=== PATIENT | female | born 1970 | race Caucasian/White ===

== ENCOUNTER 2018-09-19 03:50 | Emergency (ER) | payer SELFPAY ==
[2018-09-19] MEDS ORDERED: Bupivacaine 0.5% 10 ML SDV INJECT ONE ×2 (04:10→04:49)
[2018-09-19] MEDS ORDERED: Diphtheria,Pertussis(Acell),Tetanus Vaccine 0.5 ML SDV IM ONE (04:16)
[2018-09-19] MEDS ORDERED: ceFAZolin 1 GM in Sodium Chloride 0.9% 50 ML IV ONE (04:38)
[2018-09-19] MEDS ORDERED: Bacitracin Oint 1 GM U/D Packet TOP ONE (05:20)
--- NOTE | 2018-09-19 05:40 | EDM.PDOC ---
ED HPI GENERAL MEDICAL PROBLEM - General Chief Complaint: Bite:Animal, Insect Stated Complaint: BIT BY DOG Time Seen by Provider: 09/19/18 04:20 Source of Information: Reports: Patient History Limitations: Reports: No Limitations - History of Present Illness INITIAL COMMENTS - FREE TEXT/NARRATIVE: 47-year-old female sustained a dog bite to her left hand from a pit bull. She has several lacerations to the radial side of the hand, mainly involving the thumb and thenar area of the palm. No other injury Onset: Sudden Duration: Hour(s): (Within the last hour) Location: Reports: Upper Extremity, Left Associated Symptoms: Reports: Malaise, Weakness, Other (Patient is vagal, hypotensive and dizzy very anxious) Left Finger-Thumb Pain Score (Numeric/FACES): 10 - Related Data Allergies Allergy/AdvReac Type Severity Reaction Status Date / Time No Known Allergies Allergy Verified 09/19/18 04:11 Home Meds: Home Meds NK [No Known Home Meds] 09/16/17 [History] Past Medical History - Past Health History Medical/Surgical History: Denies Medical/Surgical History Musculoskeletal History: Reports: Fracture - Past Surgical History HEENT Surgical History: Reports: Myringotomy w Tube(s) Female Surgical History: Reports: Hysterectomy Social & Family History - Family History Family Medical History: Noncontributory - Tobacco Use Smoking Status *Q: Never Smoker - Caffeine Use Caffeine Use: Reports: None - Recreational Drug Use Recreational Drug Use: No ED ROS GENERAL - Review of Systems Review Of Systems: See Below Constitutional: Denies: Fever Respiratory: Denies: Shortness of Breath Cardiovascular: Denies: Chest Pain GI/Abdominal: Denies: Nausea, Vomiting Skin: Reports: Pallor, Diaphoresis Neurological: Reports: Dizziness Psychiatric: Reports: Anxiety ED EXAM, ANIMAL BITE - Physical Exam Exam: See Below Exam Limited By: No Limitations General Appearance: Alert, Mild Distress (Very upset, anxious, lightheaded and pale) Head: Atraumatic Respiratory/Chest: No Respiratory Distress Extremities: Other (Exam is otherwise limited to the left hand. Patient has a 5 cm curved laceration, very deep, through the thenar area of the palm. There is a 3 cm transverse laceration on the dorsal aspect of the thumb just proximal to the MP joint. There is also a very macerated 3.5 cm laceration in the webspace between thumb and index finger. Distal sensation is intact, range of motion appears adequate and normal and there is some dusky coloration around the large laceration but distal circulation appears intact) Course - Vital Signs Last Recorded V/S: Last Vital Signs Temp 97.4 F 09/19/18 04:08 Pulse 60 09/19/18 04:08 Resp 18 09/19/18 04:08 BP 91/54 L 09/19/18 04:08 Pulse Ox 95 09/19/18 04:08 - Orders/Labs/Meds Orders: Active Orders 24 hr Category Date Time Status Vaccines to be Administered [RC] PER UNIT ROUTINE Care 09/19/18 04:16 Active Meds: Medications Discontinued Medications Generic Name Dose Route Start Last Admin Trade Name Bacilioq PRN Reason Stop Dose Admin Bacitracin 1 dose 09/19/18 05:20 09/19/18 05:28 Bacitracin Oint 1 Gm TOP 09/19/18 05:21 1 dose ONETIME ONE Administration Bupivacaine HCl 10 ml 09/19/18 04:10 09/19/18 04:27 Sensorcaine-Mpf 0.5% INJECT 09/19/18 04:11 10 ml ONETIME ONE Administration Bupivacaine HCl 10 ml 09/19/18 04:49 09/19/18 04:53 Sensorcaine-Mpf 0.5% INJECT 09/19/18 04:50 10 ml ONETIME ONE Administration Diphtheria/Tetanus/Acell Pertussis 0.5 ml 09/19/18 04:16 09/19/18 04:27 Adacel IM 09/19/18 04:17 0.5 ml .ONCE ONE Administration Cefazolin Sodium 1 gm/ Sodium 50 mls @ 100 mls/hr 09/19/18 04:38 09/19/18 04: 46 Chloride IV 09/19/18 05:07 100 mls/hr ONETIME ONE Administration Lidocaine HCl 5 ml 09/19/18 05:20 09/19/18 05:28 Xylocaine-Mpf 1% INJECT 09/19/18 05:21 5 ml ONETIME ONE Administration - Re-Assessments/Exams Free Text/Narrative Re-Assessment/Exam: 09/19/18 05:36 The wounds were anesthetized with 0.5% Marcaine, and then washed thoroughly with saline, for 15 minutes using 2 L. The wound was then explored and it appeared that a small amount of muscle may have been injured at the base of the thumb but no significant tendon involvement was seen. 5 4-0 Vicryl sutures were used to close the subcutaneous tissue, followed by 11 4-0 Ethilon sutures. The 3 cm laceration was closed with 5 4-0 Ethilon sutures, and the webspace laceration closed with 6 4-0 Ethilon sutures. 1 g of IV Ancef was given. A postprocedure x-ray was taken of the hand, she was given a TDap Booster and the wounds were covered with bacitracin and dressed. She'll be on Augmentin 875 twice daily for 10 days and she'll be supplied with 20 Vicodin for extra pain control. X-ray confirmed a fracture of the thumb metatarsal as well as the proximal phalange. 09/19/18 06:24 Discussed her case with the hand surgeon Dr. Ramsay at [facility], and he agreed to see her this morning. She is going to go directly to [facility]. Departure - Departure Time of Disposition: 06:56 Disposition: DC/Tfer to Other Condition: Fair Clinical Impression: Open hand fracture Qualifiers: Encounter type: initial encounter Laterality: left Qualified Code(s): S62.92XB - Unspecified fracture of left wrist and hand, initial encounter for open fracture Laceration of hand Qualifiers: Encounter type: initial encounter Foreign body presence: without foreign body Laterality: left Qualified Code(s): S61.412A - Laceration without foreign body of left hand, initial encounter - Discharge Information Instructions: Animal Bite, [id number] Referrals: PCP,None [Primary Care Provider] - Forms: ED Department Discharge Care Plan Goals: Go to the [facility] emergency room in [place] to be seen by Dr. Ramsay, hand surgeon. Do not eat or drink anything in route. - My Orders Last 24 Hours: My Active Orders 09/19/18 04:16 Vaccines to be Administered [RC] PER UNIT ROUTINE - Assessment/Plan Last 24 Hours: My Active Orders 09/19/18 04:16 Vaccines to be Administered [RC] PER UNIT ROUTINE
--- NOTE | 2018-09-19 06:24 | CRLCR ---
HISTORY: Status post dog bite to the left hand. COMPARISON: None available. FINDINGS: The left hand is examined with PA, lateral, and oblique views. There is an acute, nondisplaced, transverse fracture of the head of the 1st metacarpal. There is an acute, oblique, mildly distracted, intra-articular fracture of the volar aspect of the base of the 1st proximal phalanx. There is soft tissue irregularity over the fractures, consistent with laceration. A small linear density is seen adjacent to the dorsal aspect of the distal shaft of the 1st metacarpal, possibly a foreign body. There is moderate diffuse soft tissue swelling of the thumb. There is no sign of additional fracture or dislocation. The soft tissues elsewhere in the hand are normal in appearance without sign of radio-opaque foreign body. 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 IMPRESSION: Acute fractures of the head of the 1st metacarpal and of the base of the 1st proximal phalanx as described above. Possible small linear foreign body located in the soft tissues overlying the dorsal aspect of the distal shaft of the 1st metacarpal. Dictated by Baltazar Carlson MD @ Sep 19 2018 6:19AM Signed by Dr. Baltazar Carlson @ Sep 19 2018 6:23AM
== END 2018-09-19 06:56 | disposition other institution (70) ==
LOC: JP.ED 03:50
DX: S62.292B Other fracture of first metacarpal bone, left hand, initial encounter for open fracture (principal); S62.512B Displaced fracture of proximal phalanx of left thumb, initial encounter for open fracture; S61.412A Laceration without foreign body of left hand, initial encounter; W54.0XXA Bitten by dog, initial encounter; Z23 Encounter for immunization
CPT/HCPCS: 12002; 12004; 12042; 73130; 90471; 90715; 96365; 99284; J0690; J3490; J7050

== ENCOUNTER 2018-10-02 21:58 | Emergency (ER) | payer SELFPAY ==
--- NOTE | 2018-10-02 22:40 | EDM.PDOC ---
ED HPI GENERAL MEDICAL PROBLEM - General Chief Complaint: Laceration Stated Complaint: REMOVE STITCHES Time Seen by Provider: 10/02/18 22:38 Source of Information: Reports: Patient, Family, RN Notes Reviewed History Limitations: Reports: No Limitations - History of Present Illness INITIAL COMMENTS - FREE TEXT/NARRATIVE: 47-year-old female presents emergency department today for suture removal she had sutures placed on 19 September followed with orthopedic surgery left hand due to dog bite pins are in place no functional complaints left hand Pain Score (Numeric/FACES): 2 - Related Data Allergies Allergy/AdvReac Type Severity Reaction Status Date / Time No Known Allergies Allergy Verified 10/02/18 22:31 Home Meds: Home Meds NK [No Known Home Meds] 09/16/17 [History] Past Medical History Musculoskeletal History: Reports: Fracture - Past Surgical History HEENT Surgical History: Reports: Myringotomy w Tube(s) Female Surgical History: Reports: Hysterectomy Social & Family History - Family History Family Medical History: Noncontributory - Tobacco Use Smoking Status *Q: Never Smoker - Caffeine Use Caffeine Use: Reports: Soda - Recreational Drug Use Recreational Drug Use: No ED ROS GENERAL - Review of Systems Review Of Systems: See Below Skin: Reports: Wound, Other ED EXAM, SKIN/RASH Exam: See Below Text/Narrative:: Flonase clean dry and intact slight amount of maceration appreciated one area in the palmar surface the wound but the wound is still intact pins in place Exam Limited By: No Limitations General Appearance: Alert, WD/WN, No Apparent Distress Course - Vital Signs Last Recorded V/S: Last Vital Signs Temp 95.4 F 10/02/18 22:38 Pulse 90 10/02/18 22:38 Resp 14 10/02/18 22:38 BP 129/81 10/02/18 22:38 Pulse Ox 99 10/02/18 22:38 Departure - Departure Time of Disposition: 23:35 Disposition: Home, Self-Care 01 Condition: Good Clinical Impression: Visit for suture removal - Discharge Information Referrals: PCP,None [Primary Care Provider] - Forms: ED Department Discharge Additional Instructions: Keep your follow-up appointment with orthopedic surgery - Assessment/Plan Plan: Assessment Encounter for suture removal Plan Follow-up with orthopedic surgery for pin removal
== END 2018-10-02 23:53 | disposition home or self-care (01) ==
LOC: JP.ED 21:58
DX: S61.412D Laceration without foreign body of left hand, subsequent encounter (principal); W54.8XXD Other contact with dog, subsequent encounter
CPT/HCPCS: 99281